=== PATIENT | female | born 1960 | race Caucasian/White ===

== ENCOUNTER 2019-03-27 17:14 | Inpatient (IN) | payer BC ==
[~2019-03-27] VITALS: Ht 157.5 cm; Wt 84.4 kg
--- NOTE | 2019-03-27 18:45 | NUR ---
Pt arrives to medical unit rm 310, assisted into rm by YANA Woodall accompanied by pt's daughters. Pt awake and alert, oriented x 4. POC reviewed with pt. shift engineer notified of pt's arrival.
[2019-03-27 19:16] LABS: BASO # 0.1 (0.0-0.2); BASO % 0.7 % (0.0-2.0); GRAN # 5.1 (1.4-6.5); HEMATOCRIT 44.7 % (37.0-47.0); HEMOGLOBIN 14.5 g/dl (12.5-16.0); LYMPH # 1.6 (1.2-3.4); LYMPH % 21.9 % (20.0-51.0); MEAN CELL VOLUME 88 fl (80.0-100.0); MEAN CORPUSCULAR HEMOGLOBIN 28 pg (27.0-31.0); MEAN CORPUSCULAR HGB CONC 32 g/dl (33.0-37.0); MEAN PLATELET VOLUME 10.6 fl (7.4-10.4); MONO # 0.5 (0.1-0.6); PLATELET COUNT 284 K/mm3 (130-400); REDCELL DISTRIBUTION WIDTH-CV 12.9 % (11.5-14.5)
[2019-03-27 19:19] LABS: INR 0.9 (0.8-3.0); PROTHROMBIN TIME 10.6 SECONDS (9.7-12.8)
[2019-03-27] MEDS ORDERED: HAIRSKINNAILS PO (19:29)
[2019-03-27] MEDS ORDERED: VITAMINC1000TA PO (19:29)
[2019-03-27] MEDS ORDERED: PRENATAL VITAMI1 TA3 PO (19:29)
[2019-03-27] MEDS ORDERED: LEXAPRO20 MG PO (19:30)
[2019-03-27] MEDS ORDERED: MASON NATURAL2000 IU PO (19:30)
[2019-03-27] MEDS ORDERED: VASOTEC 5MG5 MG/TAB PO (19:30)
[2019-03-27] MEDS ORDERED: NATURAL FLAX1000 MG PO (19:30)
[2019-03-27] MEDS ORDERED: KEPPRA750 MG PO (19:31)
[2019-03-27] MEDS ORDERED: TOPAMAX 100MG100 M1 PO (19:32)
[2019-03-27] MEDS ORDERED: PROTONIX 40MG T40 MG PO (19:32)
[2019-03-27] MEDS ORDERED: LIPITOR20 MG PO (19:32)
[2019-03-27] MEDS ORDERED: TOPAMAX 25MG25 M1 PO (19:32)
[2019-03-27] MEDS ORDERED: NORVASC 10MG10 MG PO (19:32)
[2019-03-27 19:39] VITALS: BP 114/66; PULSE 69
[2019-03-27 19:39] LABS: ALBUMIN 4.6 gm/dL (3.5-5.0); BILIRUBIN,TOTAL 0.5 mg/dL (0.0-1.0); CALCIUM 9.6 mg/dL (8.4-10.2); CREATININE, serum 0.85 (0.52-1.25); TOTAL PROTEIN 8.3 gm/dL (6.4-8.2)
[2019-03-27 19:43] VITALS: BP 114/66; PULSE 72; TEMP 97.5
--- NOTE | 2019-03-27 19:45 | NUR ---
Admission assessment complete. Patient in bed, family at bedside. Patient denies pain. Patient updated regarding bedrest status. Patient verbalized understanding, but had walked to the bathroom with family prior. Educated patient and family on bedrest orders, they agreed to comply. IV started in left AC, IV bolus to begin after CT is complete. RICARDA hose applied to left leg, SCD's applied to left leg. Ice pack on right hip, per orders. Denies further needs at this time. Will continue to assess.
[2019-03-27 19:47] LABS: PRE ALBUMIN 27.2 mg/dL (17.6-36.0)
[2019-03-27 22:42] VITALS: BP 117/68; PULSE 76; TEMP 98
[2019-03-27 23:27] VITALS: BP 114/59; PULSE 74; TEMP 98
[2019-03-28] VITALS (16 sets, daily range): BP systolic 96–114; BP diastolic 56–66; PULSE 60–94; TEMP 98–99
[2019-03-28 00:22] LABS: MUCOUS Present /lpf; PH 7 (5-8); SQUAMOUS EPITHELIAL 0-2 /hpf; URINE APPEARANCE Hazy; URINE BACTERIA None Seen /hpf; URINE BILIRUBIN Negative (NEGATIVE); URINE BLOOD Negative (NEGATIVE); URINE COLOR Straw; URINE GLUCOSE Negative (NEGATIVE); URINE KETONE Negative (NEGATIVE); URINE LEUKOCYTE ESTERASE 1+ (NEGATIVE); URINE NITRATE Negative (NEGATIVE); URINE PROTEIN(semi-quant) Negative (NEGATIVE); URINE RBC 0-2 /hpf; URINE UROBILINOGEN Negative (NEGATIVE)
[2019-03-28 00:24] LABS: COLLECTION METHOD CLEAN CATCH
--- NOTE | 2019-03-28 05:11 | NUR ---
Patient in bed, sleeping. Appears comfortable. Will continue to monitor.
--- NOTE | 2019-03-28 08:36 | NUR ---
Pt assessment complete. Pt is sitting up in bed upon entry, she is A/O x3. Her breathing is even and unlabored on RA. Pt denies SOB. She currently denies pain. Pt denies N/V. Ana CULVER. RICARDA sharpe and SCD in place to LLE. Seizure precautions in place. POC discussed with patient who verbalizes understanding. Pt denies any needs at this time. Call light within reach.
--- NOTE | 2019-03-28 11:04 | NUR ---
SW attended clinical rounds. Hospitalist will be calling [facility] for possible transfer. Patient and daughter are agreable. Prior to admission, patient was independent at home and lives with her in [place], [place]. Patient's PCP is Ruth Ferrari and medications are obtained at [facility].
--- NOTE | 2019-03-28 14:12 | NUR ---
Pt left for CT guided biopsy at this time.
--- NOTE | 2019-03-28 14:50 | NUR ---
PT BROUGHT INTO THE CT ROOM AND ASSISTED TO SLIDE TO CT BED. MONITORING EQUIPMENT PLACED AND IMAGES TAKEN.
--- NOTE | 2019-03-28 15:00 | NUR ---
PT BECAME COOL, CLAMMY AND DIAPHORETIC, GIVEN A COLD WASH CLOTH TO THE FOREHEAD. BP 96/58.
--- NOTE | 2019-03-28 15:05 | NUR ---
BP COMING BACK UP. PT FEELING BETTER. PROCEDURE COMPLETED. PT ASSISTED TO HER BED.
--- NOTE | 2019-03-28 15:20 | NUR ---
PT TAKEN BACK TO HER ROOM, 310. DAUGHTER IN THE ROOM. VS BEING MONITORED. REPORT TO GRIFFIN MILLAN. PT STATES SHE IS FEELING ABETTER
--- NOTE | 2019-03-28 15:33 | NUR ---
Pt back from biopsy. Site has bandaid covering site, [facility]. Pt denies pain at this time. Vitals being attained. Will continue to monitor.
--- NOTE | 2019-03-28 19:34 | NUR ---
Pt rested well after arriving biopsy, reported small amount of pain to biopsy site. Site CDI, PRN Tylenol administered. Pt strictly bedrest, patient aware of POC. nAa CULVER. Seizure precautions in place. Call light within reach.
--- NOTE | 2019-03-28 20:30 | NUR ---
Initial shift assessment done- states slight soreness to right hip/thigh--tylenol was given about an hour ago- states effective. On strict bedrest- Perez with clear yellow urine- TEDhose to left leg.SCD to left leg
[2019-03-29 00:18] VITALS: BP 103/66; PULSE 71; TEMP 99.3
[2019-03-29 04:30] VITALS: BP 106/61; PULSE 69; TEMP 98.1
--- NOTE | 2019-03-29 05:40 | NUR ---
Quiet night- denies pain, states comfortable- does not want to be repositioned at this time,VSS
--- NOTE | 2019-03-29 08:00 | NUR ---
PATIENT IS RESTING IN BED THIS MORNING. PATIENT IS A&OX4. VSS. BOWEL SOUNDS ACTIVE ALL FOUR QUADRANTS. PATIENT TOLERATING DIET WITHOUT ANY COMPLAINTS OF N/V. POSITIVE PEDAL PULSES EQUAL BILATERALLY. NON-PITTING EDEMA TO BLE. RIGHT LATERAL UPPER GROIN/THIGH BIOPSY SITE DRESSED WITH A BANDAID AND IS CD&I. POSITIVE PEDAL PULSES EQUAL BILATERALLY. RICARDA HOSE AND SCD TO LLE. ESTRADA CATHETER TO DEPENDENT DRAINAGE WITH MODERATE AMOUNTS OF CLEAR PALE YELLOW URINE PRESENT IN ESTRADA BAG. LEFT AC TO INT. CALL LIGHT WITHIN REACH. FAMILY PRESENT AT THE BEDSIDE. PATIENT DENIES ANY OTHER NEEDS AT THIS TIME.
[2019-03-29 08:20] VITALS: BP 104/68; PULSE 71; TEMP 98.2
[2019-03-29 11:37] VITALS: BP 112/67; PULSE 78; TEMP 98.4
--- NOTE | 2019-03-29 14:07 | NUR ---
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 No needs right now.
--- NOTE | 2019-03-29 16:13 | NUR ---
Patient will discharge home today with her and family. Patient is non weight bearing per ortho. Patient will require a wheelchair. SHAW met with patient and family to discuss DME company options. Patient and family do not have a preference but signed choice form for 1. [employer] [facility]. [facility] [place] [facility]. [facility]. SHAW faxed order to [employer]. [employer] reports they are unable to provide wheelchair because patient's insurance require authorization. [employer] reports they can offer a wheelchair private pay for 150 per month. SHAW met with family regarding wheelchair. They report patient's is on his way to [facility] and he if going to private pay for it.
[2019-03-29 16:30] VITALS: BP 113/62; PULSE 72; TEMP 98.6
--- NOTE | 2019-03-29 16:45 | NUR ---
PATIENT'S ESTRADA CATHETER DISCONTINUED PER ORDERS. 10 MLS OF STERILE SALINE ASPIRATED FROM BALLOON. TIP INTACT. PATIENT TOLERATED WELL. REYES CARE PROVIDED. PATIENT DENIES ANY NEEDS AT THIS TIME.
--- NOTE | 2019-03-29 17:15 | NUR ---
PATIENT'S LEFT AC INT DISCONTINUED PER PENDING DISCHARGE. TIP INTACT. PATIENT TOLERATED WELL.
--- NOTE | 2019-03-29 18:20 | NUR ---
PATIENT VOIDING WITHOUT ANY DIFFICULTY POST CATHETER REMOVAL. DISCHARGE INSTRUCTIONS REVIEWED WITH PATIENT AND FAMILY. ALL QUESTIONS ANSWERED. PATIENT PERSONAL BELONGINGS GATHERED. PATIENT TAKEN TO PERSONAL VEHICLE VIA WHEELCHAIR BY MEDICAL STAFF. PATIENT DISCHARGED.
== END 2019-03-29 18:20 | disposition home or self-care (01) | DRG 478 ==
LOC: COL.ER 17:14 → MEDICAL 18:29
PROVIDERS: Nurse Practitioner Family
PROC: 0QB63ZX Excision of Right Upper Femur, Percutaneous Approach, Diagnostic (ICD-10-PCS; principal; 2019-03-28)
DX: C79.51 Secondary malignant neoplasm of bone (principal); M84.551A Pathological fracture in neoplastic disease, right femur, initial encounter for fracture; N39.0 Urinary tract infection, site not specified; I10 Essential (primary) hypertension; E78.5 Hyperlipidemia, unspecified; F32.9 Major depressive disorder, single episode, unspecified; K21.9 Gastro-esophageal reflux disease without esophagitis; G40.909 Epilepsy, unspecified, not intractable, without status epilepticus; Z85.3 Personal history of malignant neoplasm of breast; Z92.21 Personal history of antineoplastic chemotherapy; Z87.891 Personal history of nicotine dependence; Z92.3 Personal history of irradiation
CPT/HCPCS: 99222-AI; 99239; A9284; J7030; Q9967